=== PATIENT | male | born 2000 | race Caucasian/White ===

== ENCOUNTER 2019-05-11 15:21 | Inpatient (IN) ==
[2019-05-11] MEDS ORDERED: IOPAMIDOL 100 ML BOTTLE IV ONE (15:22)
[2019-05-11] MEDS ORDERED: DIPH,PERTUSS(ACELL),TET VAC/PF 0.5 ML SYRINGE IM ONE (15:53)
--- NOTE | 2019-05-11 16:07 | Emergency Department Note ---
General Adult HPI - General Chief complaint: Skin/Abscess/Foreign Body Stated complaint: "want to be tested for tetanus" Time Seen by Provider: 05/11/19 15:29 Source: patient Mode of arrival: ambulatory Limitations: no limitations - History of Present Illness HPI Narrative: 19-year-old male presents concerned that he may have tetanus. 8 days ago he was poked in the left thumb by a paola nail. His immunizations are not current. States they were when he was a young child but he dropped out of school at a young age and has not had any immunizations since because they were not required. States about 48 hours ago he started having body aches. Yesterday all of a sudden he had a sudden onset of jaw stiffness. States he can open and close his job but it is very stiff and he has to put a lot of effort into it. States he really even has to think about swallowing because it just feels like all his muscles are stiff. Today he noticed his neck was stiff so he neck muscles felt stiff and heavy. No fever or chills. No nausea, vomiting, or diarrhea. No home treatments. Has a small puncture wound at the site that is healing but no redness, warmth, or drainage. - Related Data Home Medications Medication Instructions Recorded Confirmed No Known Home Meds 05/11/19 05/11/19 Allergies Allergy/AdvReac Type Severity Reaction Status Date / Time No Known Drug Allergies Allergy Verified 05/11/19 15:23 Review of Systems All systems ED: reviewed and negative except as stated. Past Medical History - Past Medical History Medical history: Reports: no medical history Surgical history ED: Reports: no surgical history - Social History smoking status: Never smoker Alcohol use: Reports: Unknown Drug use: Reports: unknown Physical Exam Limitations: no limitations General appearance: alert Head: atraumatic, normocephalic, normal inspection Eye: Present: normal appearance. Absent: conjunctival injection ENT: mucous membranes moist, TM's normal bilaterally, normal external ear exam, other (Can open and close his mouth/jaw but takes him a little bit of time to do it. Gag reflex is intact) Neck: Present: normal inspection, full ROM, trachea midline, other (Again he has full range of motion of his cervical feels like it stiff and moves a little slow.). Absent: tenderness, meningismus Chest: Present: symmetric chest wall rise Respiratory: Present: normal lung sounds bilaterally. Absent: respiratory distress, rales/crackles, wheezes, accessory muscle use Cardiovascular: Present: regular rate, normal heart sounds Neurological: Present: alert, oriented X3, normal gait Psychiatric: Present: normal affect, normal mood Skin: Present: warm, dry, intact Course Course Narrative: At 1600 I did consult with Dr. Rodriguez with infectious disease. He suggest that we give the patient a tetanus immunization however it is too late for the immunoglobulin. He suggest that we monitor her symptoms for 12 to 24 hours and if it does not progress rapidly then we know it is not tetanus and he can go ahead and be discharged home. @1648 Dr. Clemons, hospitalist agrees to accept pt observation. Vital Signs Temperature 98.1 F 05/11/19 15:22 Pulse Rate 96 H 05/11/19 15:22 Respiratory Rate 16 05/11/19 15:22 Blood Pressure 135/76 05/11/19 15:22 Pulse Oximetry (%) 97 05/11/19 15:22 Temperature 98.1 F 05/11/19 15:22 Pulse Rate 96 H 05/11/19 15:22 Respiratory Rate 16 05/11/19 15:22 Blood Pressure 135/76 05/11/19 15:22 Pulse Oximetry (%) 97 05/11/19 15:22 Disposition Pt seen by ASSISTANT SPA DIRECTOR/PA only: Yes Clinical Impression: Puncture wound, Muscle stiffness Disposition: Xfer As Outpt/Obs ([facility]) Condition: Fair Referrals: No,PCP [Primary Care Provider] -
[2019-05-11] MEDS ORDERED: metroNIDAZOLE 500 MG/100 ML BAG IV ONE (16:55)
[2019-05-11] MEDS ORDERED: metroNIDAZOLE 500 MG/100 ML BAG IV SCH (18:00)
[2019-05-11] MEDS ORDERED: TETANUS IMMUNE GLOBULIN/PF 250 UNIT SYRINGE IM ONE ×2 (19:37)
--- NOTE | 2019-05-11 19:50 | Infectious Disease Consult ---
History of Present Illness Patient information: Note initiated : 05/11/19 at 7:44 pm Service Date, if different from initiated Date: [] Patient: Karel Jaime 19 y/o M admitted on for "want to be tested for tetanus". Chief Complaint: [] Consult date: 05/11/19 Requesting Physician: Dr. Clemons Reason for Consult: Concerns for Tetanus Chief complaint: My neck is stiff and have difficulty opening mouth History of present illness: 19 year old otherwise healthy adult male comes to [facility] ED with about 4 day history of: - neck stiffness: acute onset with progession. Pt cis still able to touch his chin but with effort - difficulty swallowing: Pt says he is able to drink water without pain or choking, but senses some awkwardness and effort while doing so. Since last 2 days, pt is also c/o difficulty opening his mouth. He feels that he has to exert effort to open it fully. He further adds that about 9 day ago, he had a puncture wound from a rusted nail. The wound site has gotten better. He doesnot remember getting any tetanus shots in last 10-12 years. He denies any fever, eye symptoms [pain or weakness with eye movements, vision changes], focal weakness or numbness, nausea-vomiting, belly pain, diarrhea. Denies any IV drug use, herbal medicine intake. Endorses sick contacts: mentions his grandparents are sick, grandfather has a urinary catheter, doesnot remember any other symptoms. Review of Systems All systems PM: reviewed and no additional remarkable complaints except as stated Past History Past family history: sick contacts: grandparents Past social history: denied any smoking, alc, IV drug use Medications and Allergies Home Medications Medication Instructions Recorded Confirmed Type No Known Home Meds 05/11/19 05/11/19 History Allergies Allergy/AdvReac Type Severity Reaction Status Date / Time No Known Drug Allergies Allergy Verified 05/11/19 15:23 Physical Examination Vital signs: Temp Pulse Resp BP Pulse Ox 36.7 C 89 16 111/71 98 05/11/19 15:22 05/11/19 18:13 05/11/19 18:13 05/11/19 18:13 05/11/19 18:13 General appearance: no acute distress, alert Eyes pulmonary: nonicteric ENT: oropharynx moist, other (ok dental hygiene, no carious teeth. Uvula central. Pt able to open mouth completely but with some effort) Neck: no lymphadenopathy, other (some neck stiffness, but pt able to touch his chin with base of neck) Auscultation: bilateral: clear Cardiovascular: regular rate and rhythm Gastrointestinal: normoactive bowel sounds Integumentary: normal Extremities: no edema Gait: other (Kernig's sign negative) normal mental status, non-focal exam Results - Laboratory Findings CBC and BMP: 05/12/19 03:50 05/12/19 03:50 Assessment and Plan - Narrative A/P Narrative: A: 1. Acute onset of neck stiffness, dysphagia and difficulty opening of mouth -possible infectious causes which should be ruled out: Neck infection: abscess in parapharyngeal or retropharyngeal space Tetanus Dental infection - In absence of Kernig's sign, fever, headache, photosensitivity, other neurological findings; I have low suspicion for meningitis. - Tetanus should be ruled out, but clinically I have low suspicion for it because of following reasons: On exam, absence of trismus, dysphagia, no progression of symptoms since last 2 days Absence of any muscle spasms, seizures 2. Vaccination for tetanus Recommendations: - Admit patient with ICU care - Tetanus Immunoglobulin minimum 500 IU to be administered IM, with part of it to be given at the site of puncture. Given optimal therapeutic dose is not defined and few recommendations have recommended up to 3000 IU; will try to get some more TIG from surrounding hospitals. Once available it should be given IM only - CT face and neck with IV contrast to r/o any neck/facial/dental etiology - Blood Cx x 2 sets - IV Metronidazole 500 mg q6 hrs - IV Cefepime 2 gm q[address] face/neck negative for any infection, it could be stopped - Check procalcitonin, CBC with diff - check Urine drug screen will follow Shree Rodriguez MD Infectious diseases
[2019-05-11] MEDS ORDERED: CEFEPIME 1 GM VIAL IV SCH (20:30)
--- NOTE | 2019-05-11 20:31 | Internal Med History&Physical ---
Medical - H&P: HPI Patient information: Note initiated : 05/11/19 at 8:29 pm Service Date, if different from initiated Date: [] Patient: Karel Jaime a 19 y/o M admitted on for "want to be tested for tetanus". Chief Complaint: [] History of present illness: Mr. Jaime is a 19 year old M with no past medical history, takes only multivitamins at home, not sure about his immunization status since around 4 years old, presents to the emergency room today for evaluation of neck pain difficulty in swallowing and jaw stiffness. The patient notes he had a puncture wound on his left thumb approximately 8 days ago on 9 days ago, over the last 2 to 3 days he is noticed that he has neck spasm that is progressively been getting worse, he is had intermittent difficulty in swallowing and now has jaw stiffness or as he puts it he needs to strain to open his jaws. He read online about tetanus and therefore came to the emergency room for further evaluation. He has history of dental infections but no active dental pain or drainage. The patient denies any other complaints. There is no headache no changes in vision, some difficulty in swallowing, no fever chills no chest pain no shortness of breath no nausea vomiting no bladder issues he denies any joint pains or skin rashes. The patient denies taking any [id number] supplements or herbal supplements, no recent procedures or surgeries The patient is being admitted to the hospital with a concern for tetanus We only have 500 units of tetanus immunoglobulin available, reviewing the literature it notes that patient needs 3000 to 6000 units of tetanus immunoglobulin for clinical suspicion of active tetanus. Tetanus toxoid vaccination was given We called multiple hospitals in the surrounding region and as far as [facility] [place] [place] and [facility] None of the hospital had adequate doses of tetanus immunoglobulin and declined to accept the transfer for that reason. . All systems: reviewed and no additional remarkable complaints except as stated (As per HPI rest negative) Medical - H&P: PMH Medical history: None Surgical history: None Family history: reviewed and not pertinent Social history: Denies tobacco or recreational drug use Medical - H&P: Meds Home Medications Medication Instructions Recorded Confirmed Type No Known Home Meds 05/11/19 05/11/19 History Allergies Allergy/AdvReac Type Severity Reaction Status Date / Time No Known Drug Allergies Allergy Verified 05/11/19 15:23 Medical - H&P: Exam - Constitutional Vitals: Temp Pulse Resp BP Pulse Ox 98.1 F 65 16 125/56 99 05/11/19 15:22 05/11/19 20:02 05/11/19 18:13 05/11/19 20:02 05/11/19 20:02 Exam: GENERAL: The patient is a well-developed, well-nourished in no apparent distress. Is alert and oriented x3. VITAL SIGNS: Reviewed and as noted elsewhere. HEENT: Head is normocephalic and atraumatic. Extraocular muscles are intact. Pupils are equal, round, and reactive to light. Nares appeared normal. Mouth appears any without lesions. Mucous membranes are moist. NECK: Normal to inspection, Supple, No lymphadenopathy or thyromegaly. LUNGS: Air entry equal on both sides, no wheezing, crackles or rhonchi noted. No accessory muscles of respiration HEART: Regular rate and rhythm normal, S1 and S2 heard, no Gallop, S3 or Rub Noted, No Gross murmur heard. ABDOMEN: Soft, nontender, and nondistended. Positive bowel sounds. No hepatosplenomegaly was noted. EXTREMITIES: No cyanosis, clubbing, rash, lesions or edema. NEUROLOGIC: Cranial nerves II through XII are grossly intact. Motor and Sensory System Grossly Intact PSYCHIATRIC: Normal affect, Normal Mood. Appropriate Behavior. SKIN: No ulceration or wounds noted, No jaundice, No rash noted. Medical - H&P: Reslt - Labs CBC & Chem 7: 05/11/19 20:13 05/11/19 20:13 Medical - H&P: A/P - Narrative A/P Narrative: Tetanus -Monitor on PCU status -tetanus vaccine given -500units of Tetanus immunoglobulin given, with around 50units infiltrated in the thumb -no e/o local infection or necrosis to warrant wound care -we are trying to obtain the remaining doses of immunoglobulin by pooling the medication from other hospitals. -patient has been updated on the situation and agrees with the mangement plan -benzo for muscle spams -will intubate to protect airway and consider neuromuscular relaxants if needed. -ID has been consulted, advised neck /dental CT to r?o other infections, IV cefepime and metronidazole, On further review CDC website as well as they are pink book (Immunology and Vaccine-Preventable Diseases Derwood Book Tetanus) for management of tetanus mentions according to some experts 500 units should be adequate and is sometimes as effective as 3000 to 6000 units. I have placed a copy of the relevant section in patients chart. They also recommend consideration for IVIG if we are unable to obtain tetanus immunoglobulin however since we have at least 500 units available at this time and considering the complications associated with IVIG we will hold off on this. Excerpt from [facility] website "Medical experts recommend a single dose of human TIG for treatment of persons with tetanus. Researchers have not established the optimal therapeutic dose. However, experts recommend 500 international units (IU), which appears to be as effective as higher doses ranging from 3,000 to 6,000 IU and causes less discomfort. Clinicians must administer available preparations intramuscularly; TIG preparations available in the [place] are not licensed or formulated for intrathecal or intravenous use. Some medical experts recommend infiltration of part of the dose locally around the wound (see Red BookExternal), although its efficacy has not been proven. If TIG is not available, clinicians can use IGIV at a dose of 200 to 400 milligrams per kilogram (mg/kg). However, the Food and Drug Administration has not approved IGIV for this use. In addition, anti-tetanus antibody content varies from lot to lot."
[2019-05-11 21:05] LABS: Basophils # (Auto) 0 K/mcL (0.0-0.3); Basophils % (Auto) 0.1 % (0.0-2.0); Eosinophils # (Auto) 0.1 K/mcL (0.0-0.7); Eosinophils % (Auto) 0.8 % (0.0-7.0); Granulocytes % (Auto) 78.8 % (38.0-78.0); Hematocrit 42.2 % (41.0-55.0); Hemoglobin 13.9 g/dL (13.5-16.5); Lymphocytes # (Auto) 1.4 K/mcL (1.5-4.8); Lymphocytes % (Auto) 15.7 % (15.5-49.0); Mean Corpuscular HGB Conc 32.9 g/dL (31.0-36.0); Monocytes # (Auto) 0.4 K/mcL (0.1-0.9); Monocytes % (Auto) 4.6 % (1.0-12.0); Platelet Count 262 K/mcL (140-440); RBC 4.69 M/mcL (4.50-5.90); Red Cell Distribution Width 13.4 % (11.5-14.5); WBC 9.2 K/mcL (4.5-11.0)
[2019-05-11] MEDS ORDERED: LORazepam 2 MG/ML VIAL IV PRN (21:10)
[2019-05-11 21:24] LABS: ALT/SGPT 19 U/l (0-40); AST/SGOT 22 U/l (0-37); Albumin 4.5 gm/dL (3.2-5.2); Albumin/Globulin Ratio 1.5 (1.0-2.3); Alkaline Phosphatase 67 U/L (39-117); Bilirubin,Direct < 0.2 mg/dL (0.0-0.3); Bilirubin,Total 0.5 mg/dL (0.0-1.0); Blood Urea Nitrogen 10 mg/dl (6-20); Calcium 9.8 mg/dl (8.6-10.4); Carbon Dioxide 27 mmol/L (22-30); Chloride 101 mmol/L (96-108); Globulin 3.1 gm/dL (2.2-3.7); Glomerular Filtration Rate 129; Glucose 91 mg/dL (70-105); Lactate Dehydrogenase 149 U/L (94-250); Phosphorous 3.4 mg/dL (2.7-4.5); Triglycerides 48 mg/dl (<125); Uric Acid 4.3 mg/dL (2.5-8.0)
[2019-05-11] MEDS: 0.9 % SODIUM CHLORIDE 10 ML SYRINGE IV SCH (21:33)
[2019-05-11] MEDS: CEFEPIME 1 GM VIAL IV SCH (21:33)
[2019-05-11 21:39] LABS: Amphetamine Screen,Urine NONE DETECTED (NONDETECTED); Barbiturate Screen,Urine NONE DETECTED (NONDETECTED); Benzodiazepines Screen,Urine NONE DETECTED (NONDETECTED); Cannabinoid Screen,Urine SUSPECT POSITIVE (NONDETECTED); Cocaine Screen,Urine NONE DETECTED (NONDETECTED); Opiate Screen,Urine NONE DETECTED (NONDETECTED); Oxycodone, Urine Screen NONE DETECTED (NONDETECTED); Phencyclidine Screen,Urine NONE DETECTED (NONDETECTED)
[2019-05-11] MEDS: metroNIDAZOLE 500 MG/100 ML BAG IV SCH (23:35)
[2019-05-11] MEDS ORDERED: METHOCARBAMOL 1,000 MG/10 ML VIAL IV PRN (23:58)
[2019-05-12] MEDS ORDERED: METHOCARBAMOL 1,000 MG/10 ML VIAL ONE (00:03)
[2019-05-12] MEDS ORDERED: MAGNESIUM SULFATE 2 GM/50 ML BAG IV ONE ×2 (00:39→00:48)
[2019-05-12] MEDS: metroNIDAZOLE 500 MG/100 ML BAG IV SCH ×4 (02:05→18:24)
[2019-05-12] MEDS ORDERED: TETANUS IMMUNE GLOBULIN/PF 250 UNIT SYRINGE IM ONE (03:00)
[2019-05-12] MEDS: CEFEPIME 1 GM VIAL IV SCH (05:38)
[2019-05-12] MEDS: 0.9 % SODIUM CHLORIDE 10 ML SYRINGE IV SCH ×3 (05:39→21:01)
[2019-05-12 07:19] LABS: Basophils # (Auto) 0 K/mcL (0.0-0.3); Basophils % (Auto) 0.5 % (0.0-2.0); Eosinophils # (Auto) 0.3 K/mcL (0.0-0.7); Eosinophils % (Auto) 3.9 % (0.0-7.0); Granulocytes % (Auto) 63.1 % (38.0-78.0); Hematocrit 41.7 % (41.0-55.0); Hemoglobin 13.7 g/dL (13.5-16.5); Lymphocytes # (Auto) 1.9 K/mcL (1.5-4.8); Lymphocytes % (Auto) 23.8 % (15.5-49.0); Mean Cell Volume 90.6 fL (80.0-100.0); Mean Corpuscular HGB Conc 32.8 g/dL (31.0-36.0); Mean Platelet Volume 8.1 fL (7.4-10.4); Monocytes # (Auto) 0.7 K/mcL (0.1-0.9); Monocytes % (Auto) 8.7 % (1.0-12.0); Platelet Count 254 K/mcL (140-440); RBC 4.61 M/mcL (4.50-5.90); Red Cell Distribution Width 13.3 % (11.5-14.5); WBC 8.2 K/mcL (4.5-11.0)
[2019-05-12 07:28] LABS: ALT/SGPT 15 U/l (0-40); AST/SGOT 21 U/l (0-37); Albumin 4.2 gm/dL (3.2-5.2); Albumin/Globulin Ratio 1.4 (1.0-2.3); Alkaline Phosphatase 64 U/L (39-117); Bilirubin,Direct < 0.2 mg/dL (0.0-0.3); Bilirubin,Total 0.5 mg/dL (0.0-1.0); Blood Urea Nitrogen 9 mg/dl (6-20); Carbon Dioxide 27 mmol/L (22-30); Chloride 99 mmol/L (96-108); Globulin 2.9 gm/dL (2.2-3.7); Glomerular Filtration Rate 108; Glucose 79 mg/dL (70-105); Lactate Dehydrogenase 146 U/L (94-250); Phosphorous 4.2 mg/dL (2.7-4.5); Triglycerides 55 mg/dl (<125); Uric Acid 4.8 mg/dL (2.5-8.0)
--- NOTE | 2019-05-12 08:21 | Cat Scan Report ---
History: Dental surgery one month ago with pain and infection TECHNIQUE: The patient was imaged following injection of intravenous contrast scanning from above the orbits through the thoracic inlet. Sagittal and coronal reformats were created. The radiation exposure was limited using dose reduction technology. FINDINGS: Patient has had a dental cap applied to the right first mandibular molar. A root canal had also been performed at this level. A small amount of the cement which was inserted into the root canal has extended through a small defect in the cortex, along the lateral wall of the adjacent mandible. There is no associated soft tissue inflammation and no erosion of bone. No facial or neck abscess are present. There are a few small reactive lymph nodes in the upper neck. The largest is adjacent to the right submandibular gland and measures 8 x 10 mm. There are smaller submental lymph nodes. No pathologically enlarged lymph nodes are present. The submandibular and parotid glands are normal and symmetric. Oral cavity parapharyngeal spaces are normal. The larynx is normal. Thyroid is normal in size and homogeneous. Lung apices are clear. Patient has chronic severe right maxillary sinusitis. The sinuses completely opacified with heterogeneous inflammatory material. There is slight thickening of the wall of the adjacent maxilla due to chronic sinusitis. There is also opacification of a couple right ethmoid air cells area The orbits are normal. Visualized portion of the brain is normal. IMPRESSION: Postoperative changes following a root canal and placement of a dental cap in the right first mandibular molar. The cement has extended through a small defect in the cortex in the adjacent mandible but there is no evidence of abscess or osteomyelitis. Severe chronic right maxillary sinusitis Interpreted and Authenticated by: Moy Fegn 05/12/19
--- NOTE | 2019-05-12 11:27 | Internal Med Progress Note ---
Medical - PN: Subj Patient information: Note initiated : 05/12/19 at 11:24 am Service Date, if different from initiated Date: [] Patient: Karel Jaime 19 y/o M admitted on 05/11/19 for Tetanus. Chief Complaint: [] Interval history: Mr. Jaime is a 19 year old M with no past medical history, takes only multivitamins at home, not sure about his immunization status since around 4 years old, presents to the emergency room today for evaluation of neck pain difficulty in swallowing and jaw stiffness. The patient notes he had a puncture wound on his left thumb approximately 8 days ago on 9 days ago, over the last 2 to 3 days he is noticed that he has neck spasm that is progressively been getting worse, he is had intermittent difficulty in swallowing and now has jaw stiffness or as he puts it he needs to strain to open his jaws. He read online about tetanus and therefore came to the emergency room for further evaluation. He has history of dental infections but no active dental pain or drainage. The patient denies any other complaints. There is no headache no changes in vision, some difficulty in swallowing, no fever chills no chest pain no shortness of breath no nausea vomiting no bladder issues he denies any joint pains or skin rashes. The patient denies taking any [id number] supplements or herbal supplements, no recent procedures or surgeries The patient is being admitted to the hospital with a concern for tetanus We only have 500 units of tetanus immunoglobulin available, reviewing the literature it notes that patient needs 3000 to 6000 units of tetanus immunoglobulin for clinical suspicion of active tetanus. Tetanus toxoid vaccination was given We called multiple hospitals in the surrounding region and as far as [facility] and [facility] None of the hospital had adequate doses of tetanus immunoglobulin and declined to accept the transfer for that reason. 05/12 Patient seen and examined, no acute overnight event He did complain about some muscle spasm in his lower extremity and torso last night which responded to methocarbamol and magnesium The patient is able to talk well feels his jaw tightness is better he was able to walk around take a shower this morning he is able to tolerate p.o. diet well He does appear anxious and depressed He has no new complaints feels better He got a total of 2250 units of tetanus immunoglobulin, CT scan shows sinusitis chronic maxillary. Otherwise no evidence of dental infection or spinal neck infection Appreciate infectious disease help discontinue cefepime now. We will monitor the patient for at least another 24 hours and likely discharge him tomorrow. The patient gag reflex is intact, which makes me wonder if tetanus is the underlying culprit in this patient. Pertinent ROS: Denies headache, dizziness Denies chest pain, palpitations Denies cough or shortness of breath Denies abdominal pain, nausea or vomiting. - Constitutional Vitals: Vital Signs Temp Pulse Resp BP Pulse Ox 97.8 F 62 14 140/57 98 05/12/19 06:58 05/12/19 06:01 05/12/19 06:01 05/12/19 06:01 05/12/19 06:01 Period Temp Pulse Resp BP Sys/Zarate Pulse Ox Last 24 Hr 97.7 F-98.5 F 59-96 9-17 107-144/53-85 96-100 Intake and Output 05/11/19 05/12/19 05/12/19 21:59 05:59 13:59 Intake Total 094 790 0766 Output Total 1200 1300 Balance -1100 -790 1060 Weight 164 lb 2 oz 164 lb 2 oz Patient Weight 05/13/19 05:59 Weight 164 lb 2 oz Intake & Output: Intake & Output 05/11/19 05/12/19 05/12/19 21:59 05:59 13:59 Intake Total 977 232 3542 Output Total 1200 1300 Balance -1100 -790 1060 Weight 164 lb 2 oz 164 lb 2 oz Intake: IV 100 150 100 Oral 360 960 Output: Void Amount 1200 1300 Other: Meal Breakfast Percent of Meal Consumed 100% Feeding Ability Independent Urine Appearance Clear Clear Urine Color Bright Yellow Bright Yellow Exam: Constitutional; Afebrile, cooperative, alert, not in distress. Respiratory system: Air Entry equal on both sides, No crackles or wheezing, no rhonchi. CVS- Rate rhythm regular, S1,S2 heard, no gallop, no rub. Abdomen- Soft nontender abdomen, no organomegaly, no tenderness, no guarding or rigidity, ADVERTISING CONSULTANT- AOOx3, moving all extremities, no gross focal deficit noted. able to open jaw well, Gag reflex intact Am J Trop Med Hyg. 1994;53(4):386-7. Short report: the spatula test: a simple bedside test to diagnose tetanus. Nafisa Tan DR. Author information Abstract Four hundred patients with suspected tetanus were studied to determine the value of the spatula test to diagnose tetanus. A positive test result (reflex spasm o f the masseters on touching the posterior pharyngeal wall) was seen in 359 (94%) of 380 patients with tetanus and in no patient without tetanus. Thirty-three of 400 patients (13 with tetanus and 20 with other diagnoses) had a negative test result (a gag reflex with attempted expulsion of the spatula). Thus, the test performed on presentation had a high specificity (100%) and sensitivity (94%) for diagnosing tetanus. PMID: [id number] DOI: [email or web address] Medical - PN: Obj Da - Labs CBC & Chem 7: 05/12/19 03:50 05/12/19 03:50 Labs: Abnormal Lab Results 05/11/19 05/11/19 20:42 20:13 Gran % 78.8 H Lymph # (Auto) 1.4 L U Marijuana (THC) Screen Suspect positive A Meds: Medications Metronidazole (Flagyl) 500 mg in 100 mls @ 100 mls/hr IV Q6H JESUS; Protocol Last Infusion: 05/12/19 08:35 Dose: Infused Documented by: Lorazepam (Ativan) 0.5 - 1 mg IV Q2HP PRN PRN Reason: muscle spasms Last Admin: 05/11/19 23:44 Dose: 1 mg Documented by: Methocarbamol (Robaxin) 750 mg IV Q6HP PRN PRN Reason: Muscle Spasm Sodium Chloride (Saline Flush) 10 ml IV Q8 JESUS Last Admin: 05/12/19 05:39 Dose: 10 ml Documented by: Medical - PN: A/P - Time Spent With Patient Total time spent is greater than 50% in coordination of care (as documented) at patient's floor/unit and/or counseling patient: - Narrative A/P Narrative: Tetanus sinusitis -on flagyl, patient received 2250 units of tetanus immune globulin -IV Ativan methocarbamol as needed for muscle spasm, does not seem to worsen, ext stimuli has no real effect on patients spasms. -Monitor for another 24 hours and possible discharge home -We will need to consider completing the course tetanus vaccination as outpatient. Medical - PN: Qual - VTE Deep Vein Thrombosis/Pulmonary Embolism Present on Admission: No
--- NOTE | 2019-05-12 12:57 | Internal Med Progress Note ---
Medical - PN: Subj Patient information: Note initiated : 05/12/19 at 12:56 pm Service Date, if different from initiated Date: [] Patient: Karel Jaime 19 y/o M admitted on 05/11/19 for Tetanus. Chief Complaint: [] Interval history: Mr. Jaime is a 19 year old M with no past medical history, takes only multivitamins at home, not sure about his immunization status since around 4 years old, presents to the emergency room today for evaluation of neck pain difficulty in swallowing and jaw stiffness. The patient notes he had a puncture wound on his left thumb approximately 8 days ago on 9 days ago, over the last 2 to 3 days he is noticed that he has neck spasm that is progressively been getting worse, he is had intermittent difficulty in swallowing and now has jaw stiffness or as he puts it he needs to strain to open his jaws. He read online about tetanus and therefore came to the emergency room for further evaluation. He has history of dental infections but no active dental pain or drainage. The patient denies any other complaints. There is no headache no changes in vision, some difficulty in swallowing, no fever chills no chest pain no shortness of breath no nausea vomiting no bladder issues he denies any joint pains or skin rashes. The patient denies taking any [id number] supplements or herbal supplements, no recent procedures or surgeries The patient is being admitted to the hospital with a concern for tetanus We only have 500 units of tetanus immunoglobulin available, reviewing the literature it notes that patient needs 3000 to 6000 units of tetanus immunoglobulin for clinical suspicion of active tetanus. Tetanus toxoid vaccination was given We called multiple hospitals in the surrounding region and as far as [facility] and [facility] None of the hospital had adequate doses of tetanus immunoglobulin and declined to accept the transfer for that reason. 05/12 Patient seen and examined, no acute overnight event He did complain about some muscle spasm in his lower extremity and torso last night which responded to methocarbamol and magnesium The patient is able to talk well feels his jaw tightness is better he was able to walk around take a shower this morning he is able to tolerate p.o. diet well He does appear anxious and depressed He has no new complaints feels better He got a total of 2250 units of tetanus immunoglobulin, CT scan shows sinusitis chronic maxillary. Otherwise no evidence of dental infection or spinal neck infection Appreciate infectious disease help discontinue cefepime now. We will monitor the patient for at least another 24 hours and likely discharge him tomorrow. The patient gag reflex is intact, which makes me wonder if tetanus is the underlying culprit in this patient. 05/13 - Constitutional Vitals: Vital Signs Temp Pulse Resp BP Pulse Ox 97.4 F 74 12 138/75 100 05/12/19 12:21 05/12/19 12:32 05/12/19 12:32 05/12/19 12:21 05/12/19 12:32 Period Temp Pulse Resp BP Sys/Zarate Pulse Ox Last 24 Hr 97.4 F-98.5 F 59-96 9-17 107-144/53-85 96-100 Intake and Output 05/11/19 05/12/19 05/12/19 21:59 05:59 13:59 Intake Total 083 831 1961 Output Total 1200 1300 Balance -1100 -790 1060 Weight 74.446 kg 74.446 kg Patient Weight 05/13/19 05:59 Weight 74.446 kg Intake & Output: Intake & Output 05/11/19 05/12/19 05/12/19 21:59 05:59 13:59 Intake Total 443 108 9113 Output Total 1200 1300 Balance -1100 -790 1060 Weight 74.446 kg 74.446 kg Intake: IV 100 150 100 Oral 360 960 Output: Void Amount 1200 1300 Other: Meal Breakfast Percent of Meal Consumed 100% Feeding Ability Independent Urine Appearance Clear Clear Urine Color Bright Yellow Bright Yellow Stool Size Moderate Stool Color Brown Stool Consistency Dry and Hard # Voids 2 # Bowel Movements 1 Exam: General: Alert, Awake, No acute Distress Eyes/N/T: EOMI, Head/Neck: neck supple, CV: RRR, No murmurs, Pulm: Clear b/l, no wheezing/rhonchi/rales Abd: soft, nontender, +BS x4 Ext: no clubbing/cyanosis/edema Neuro: Alert, no focal deficits, moves all extremities, Skin: warm/dry Medical - PN: Obj Da - Labs CBC & Chem 7: 05/12/19 03:50 05/12/19 03:50 Labs: Abnormal Lab Results 05/11/19 05/11/19 20:42 20:13 Gran % 78.8 H Lymph # (Auto) 1.4 L U Marijuana (THC) Screen Suspect positive A Meds: Medications Metronidazole (Flagyl) 500 mg in 100 mls @ 100 mls/hr IV Q6H JESUS; Protocol Last Infusion: 05/12/19 08:35 Dose: Infused Documented by: Lorazepam (Ativan) 0.5 - 1 mg IV Q2HP PRN PRN Reason: muscle spasms Last Admin: 05/11/19 23:44 Dose: 1 mg Documented by: Methocarbamol (Robaxin) 750 mg IV Q6HP PRN PRN Reason: Muscle Spasm Sodium Chloride (Saline Flush) 10 ml IV Q8 JESUS Last Admin: 05/12/19 05:39 Dose: 10 ml Documented by: Medical - PN: A/P - Time Spent With Patient Total time spent is greater than 50% in coordination of care (as documented) at patient's floor/unit and/or counseling patient: - Narrative A/P Narrative: A: *Neck stiffness/dysphagia/difficulty with jaw opening: ?Tetanus vs other -CT neck no abscess/dental or other infection P: -patient received 2250 units of tetanus immune globulin -on flagyl, -IV Ativan methocarbamol as needed for muscle spasm, does not seem to worsen, ext stimuli has no real effect on patients spasms. -Monitor for another 24 hours and possible discharge home -We will need to consider completing the course tetanus vaccination as outpatient (two more doses - at four weeks and 6-12mos later). Medical - PN: Qual - VTE Deep Vein Thrombosis/Pulmonary Embolism Present on Admission: No
--- NOTE | 2019-05-12 14:39 | Discharge Summary ---
Medical - DS: Prov Patient information: Note initiated : 05/12/19 at 2:37 pm Service Date, if different from initiated Date: [] Patient: Karel Jaime 19 y/o M admitted on 05/11/19 for Tetanus. Chief Complaint: [] Date of admission: 05/11/19 21:06 Discharge date: 05/13/19 Primary care physician: PCP No Consults: 05/11/19 Consult to Physician [CONS] Stat Comment: Consulting Provider: Shree Rodriguez Reason For Exam: Physician to Consult 05/11/19 16:46 Consult to Physician [CONS] Stat Comment: Consulting Provider: Celia Clemons Reason For Exam: Physician to Consult Medical - DS: Meds - Discharge Medications Active and Home Medications: Home Medications No Known Home Meds 05/11/19 [History Confirmed 05/11/19 Last Taken Unknown] Medical - DS: Hosp Hospital course: Mr. Jaime is a 19 year old M Mr. Jaime is a 19 year old M with no past medical history, takes only multivitamins at home, not sure about his immunization status since around 4 years old, presents to the emergency room today for evaluation of neck pain difficulty in swallowing and jaw stiffness. The patient notes he had a puncture wound on his left thumb approximately 8 days ago on 9 days ago, over the last 2 to 3 days he is noticed that he has neck spasm that is progressively been getting worse, he is had intermittent difficult y in swallowing and now has jaw stiffness or as he puts it he needs to strain to open his jaws. He read online about tetanus and therefore came to the emergency room for further evaluation. He has history of dental infections but no active dental pain or drainage. The patient denies any other complaints. There is no headache no changes in vision, some difficulty in swallowing, no fever chills no chest pain no shortness of breath no nausea vomiting no bladder issues he denies any joint pains or skin rashes. The patient denies taking any [id number] supplements or herbal supplements, no recent procedures or surgeries The patient is being admitted to the hospital with a concern for tetanus We only have 500 units of tetanus immunoglobulin available, reviewing the literature it notes that patient needs 3000 to 6000 units of tetanus immunoglobulin for clinical suspicion of active tetanus. Tetanus toxoid vaccination was given We called multiple hospitals in the surrounding region and as far as [facility] and [facility] None of the hospital had adequate doses of tetanus immunoglobulin and declined to accept the transfer for that reason. 05/12 Patient seen and examined, no acute overnight event He did complain about some muscle spasm in his lower extremity and torso last night which responded to methocarbamol and magnesium The patient is able to talk well feels his jaw tightness is better he was able to walk around take a shower this morning he is able to tolerate p.o. diet well He does appear anxious and depressed He has no new complaints feels better He got a total of 2250 units of tetanus immunoglobulin, CT scan shows sinusitis chronic maxillary. Otherwise no evidence of dental infection or spinal neck infection Appreciate infectious disease help discontinue cefepime now. We will monitor the patient for at least another 24 hours and likely discharge him tomorrow. The patient gag reflex is intact, which makes me wonder if tetanus is the underlying culprit in this patient. 05/13 No overnight events no new complaints. Patient doing well, desires for discharge. Stable Discharge diagnosis: Possible tetanus - Time Spent with Patient Total time spent providing and/or coordinating discharge services: Greater than 30 minutes Medical - DS: Exam - Constitutional Vitals: Vital Signs Temp Pulse Pulse Resp BP BP BP 05/12/19 12:32 74 12 05/12/19 12:21 97.4 F 79 13 138/75 05/12/19 12:14 71 16 05/12/19 08:01 70 11 L 124/76 05/12/19 07:01 74 12 131/79 05/12/19 06:58 97.8 F 05/12/19 06:01 62 14 140/57 05/12/19 05:01 59 L 16 123/63 05/12/19 04:01 98.0 F 74 11 L 121/63 05/12/19 03:01 61 17 123/64 05/12/19 02:01 67 11 L 139/70 05/12/19 02:00 72 12 05/12/19 01:01 70 16 114/64 05/12/19 00:01 70 14 118/60 05/11/19 23:51 97.7 F 77 11 L 131/71 05/11/19 23:49 97.7 F 76 12 131/71 05/11/19 23:47 97.7 F 64 10 L 131/71 05/11/19 23:46 97.7 F 66 9 L 131/71 05/11/19 23:45 73 11 L 05/11/19 23:41 87 11 L 131/71 05/11/19 23:01 62 11 L 134/60 05/11/19 22:57 97.7 F 65 12 134/60 05/11/19 22:01 83 11 L 125/67 05/11/19 21:16 81 9 L 144/85 05/11/19 21:06 98.5 F 72 11 L 144/85 05/11/19 20:02 65 125/56 05/11/19 20:00 66 15 117/55 05/11/19 19:00 89 111/71 05/11/19 18:13 89 16 111/71 05/11/19 18:00 78 107/53 05/11/19 17:54 59 L 16 126/62 05/11/19 17:33 73 16 127/67 05/11/19 17:13 78 16 107/53 05/11/19 16:53 70 16 116/56 05/11/19 16:31 59 L 115/65 05/11/19 15:22 98.1 F 96 H 16 135/76 Pulse Ox 05/12/19 12:32 100 05/12/19 12:21 98 05/12/19 12:14 99 05/12/19 08:01 100 05/12/19 07:01 100 05/12/19 06:58 05/12/19 06:01 98 05/12/19 05:01 98 05/12/19 04:01 96 05/12/19 03:01 97 05/12/19 02:01 99 05/12/19 02:00 99 05/12/19 01:01 98 05/12/19 00:01 100 05/11/19 23:51 100 05/11/19 23:49 100 05/11/19 23:47 100 05/11/19 23:46 100 05/11/19 23:45 100 05/11/19 23:41 100 05/11/19 23:01 100 05/11/19 22:57 99 05/11/19 22:01 100 05/11/19 21:16 96 05/11/19 21:06 97 05/11/19 20:02 99 05/11/19 20:00 98 05/11/19 19:00 98 05/11/19 18:13 98 05/11/19 18:00 99 05/11/19 17:54 98 05/11/19 17:33 98 05/11/19 17:13 98 05/11/19 16:53 97 05/11/19 16:31 100 05/11/19 15:22 97 Intake and Output 05/12/19 05/12/19 05/12/19 05:59 13:59 21:59 Intake Total 510 1060 100 Output Total 1300 Balance -790 1060 100 Intake: IV 150 100 100 Oral 360 960 Output: Void Amount 1300 Other: Meal Breakfast Percent of Meal Consumed 100% Feeding Ability Independent Urine Appearance Clear Urine Color Bright Yellow Stool Size Moderate Stool Color Brown Stool Consistency Dry and Hard # Voids 2 # Bowel Movements 1 Weight 74.446 kg Patient Weight 05/13/19 05:59 Weight 74.446 kg Medical - DS: Data Labs on day of discharge: Labs from last 24 hours 05/12/19 05/12/19 05/11/19 03:50 03:50 20:42 WBC 8.2 RBC 4.61 Hgb 13.7 Hct 41.7 MCV 90.6 MCH 29.7 MCHC 32.8 RDW 13.3 Plt Count 254 MPV 8.1 Gran % 63.1 Lymph % (Auto) 23.8 Cochran % (Auto) 8.7 Eos % (Auto) 3.9 Baso % (Auto) 0.5 Gran # 5.2 Lymph # (Auto) 1.9 Cochran # (Auto) 0.7 Eos # (Auto) 0.3 Baso # (Auto) 0 Sodium 138 Potassium 3.7 Chloride 99 Carbon Dioxide 27 Anion Gap 12.0 BUN 9 Creatinine 1.0 GFR Calculation 108 Glucose 79 Uric Acid 4.8 Calcium 9.0 Phosphorus 4.2 Magnesium 2.5 Total Bilirubin 0.5 Direct Bilirubin < 0.2 GGT 15 AST 21 ALT 15 Alkaline Phosphatase 64 Lactate Dehydrogenase 146 Total Protein 7.1 Albumin 4.2 Globulin 2.9 Albumin/Globulin Ratio 1.4 Triglycerides 55 Urine Opiates Screen None detected Ur Opiates Confirm Not Reportable Ur Oxycodone Screen None detected Urine Methadone Screen None detected Ur Methadone Confirm Not Reportable Ur Barbiturates Screen None detected Ur Barbiturate Confirm Not Reportable Ur Phencyclidine Scrn None detected Urine PCP Confirm Not Reportable Ur Amphetamines Screen None detected U Amphetamines Confirm Not Reportable U Benzodiazepines Scrn None detected U Benzodiazepine Confm Not Reportable Urine Cocaine Screen None detected Urine Cocaine Confirm Not Reportable U Cannabinoids Confirm Not Reportable U Marijuana (THC) Screen Suspect positive A 05/11/19 05/11/19 20:13 20:13 WBC 9.2 RBC 4.69 Hgb 13.9 Hct 42.2 MCV 90.0 MCH 29.6 MCHC 32.9 RDW 13.4 Plt Count 262 MPV 8.0 Gran % 78.8 H Lymph % (Auto) 15.7 Cochran % (Auto) 4.6 Eos % (Auto) 0.8 Baso % (Auto) 0.1 Gran # 7.2 Lymph # (Auto) 1.4 L Cochran # (Auto) 0.4 Eos # (Auto) 0.1 Baso # (Auto) 0 Sodium 140 Potassium 3.7 Chloride 101 Carbon Dioxide 27 Anion Gap 12.0 BUN 10 Creatinine 0.8 GFR Calculation 129 Glucose 91 Uric Acid 4.3 Calcium 9.8 Phosphorus 3.4 Magnesium 2.0 Total Bilirubin 0.5 Direct Bilirubin < 0.2 GGT 15 AST 22 ALT 19 Alkaline Phosphatase 67 Lactate Dehydrogenase 149 Total Protein 7.6 Albumin 4.5 Globulin 3.1 Albumin/Globulin Ratio 1.5 Triglycerides 48 Urine Opiates Screen Ur Opiates Confirm Ur Oxycodone Screen Urine Methadone Screen Ur Methadone Confirm Ur Barbiturates Screen Ur Barbiturate Confirm Ur Phencyclidine Scrn Urine PCP Confirm Ur Amphetamines Screen U Amphetamines Confirm U Benzodiazepines Scrn U Benzodiazepine Confm Urine Cocaine Screen Urine Cocaine Confirm U Cannabinoids Confirm U Marijuana (THC) Screen Medical - DS: A/P - Patient/Caregiver Discharge Instructions Activity: increase activity as tolerated Diet: Regular Diet Additional Instructions: Needs follow-up tetanus vaccination - dose at 4 weeks and another dose at 6 to 12 months - Follow up Plan Follow up with: Bakari Tellez PA-C [Physician Surfacer] - 05/24/19 3:00 pm (Please check in at 2:45 for paperwork) Shree Rodriguez MD [Physician] - Disposition: Home, Self-Care Prognosis: Fair Rehab Potential: Fair Medical - DS: Qual - VTE Deep Vein Thrombosis/Pulmonary Embolism Present on Admission: No
--- NOTE | 2019-05-12 18:46 | Infectious Disease Prog Note ---
Subjective Patient information: Note initiated : 05/12/19 at 6:33 pm Service Date, if different from initiated Date: [] Patient: Karel Jaime 19 y/o M admitted on 05/11/19 for Tetanus. Chief Complaint: [] Interval history: Pt feels better. Denies any fever, chills, n/v, diarrhea. Able to swallow and drink/eat without any problems. Denies any difficulty opening his mouth. Reports that he has long history of muscle spasms in legs and arms and didnot notice any worsening recently. He mentions that he wants to go home soon. Objective Objective Narrative: General appearance: no acute distress, alert Eyes: nonicteric ENT: oropharynx moist, Uvula central. Pt able to open mouth completely but without any difficulty Neck: no lymphadenopathy, no neck stiffness, but pt able to touch his chin with base of neck Chest: CTAB CVS: s1 s2 normal, no m/r/g GI: normoactive bowel sounds, non tender, no distended no skin rash no edema Neuro: power 5/5 all muscle groups normal mental status, non focal exam - Vital Signs Vital signs: Vital Signs Temp Pulse Pulse Resp BP BP BP 05/12/19 14:43 60 17 121/65 05/12/19 12:32 74 12 05/12/19 12:21 36.3 C 79 13 138/75 05/12/19 12:14 71 16 05/12/19 08:01 70 11 L 124/76 05/12/19 07:01 74 12 131/79 05/12/19 06:58 36.6 C 05/12/19 06:01 62 14 140/57 05/12/19 05:01 59 L 16 123/63 05/12/19 04:01 36.7 C 74 11 L 121/63 05/12/19 03:01 61 17 123/64 05/12/19 02:01 67 11 L 139/70 05/12/19 02:00 72 12 05/12/19 01:01 70 16 114/64 05/12/19 00:01 70 14 118/60 05/11/19 23:51 36.5 C 77 11 L 131/71 05/11/19 23:49 36.5 C 76 12 131/71 05/11/19 23:47 36.5 C 64 10 L 131/71 05/11/19 23:46 36.5 C 66 9 L 131/71 05/11/19 23:45 73 11 L 05/11/19 23:41 87 11 L 131/71 05/11/19 23:01 62 11 L 134/60 05/11/19 22:57 36.5 C 65 12 134/60 05/11/19 22:01 83 11 L 125/67 05/11/19 21:16 81 9 L 144/85 05/11/19 21:06 36.9 C 72 11 L 144/85 05/11/19 20:02 65 125/56 05/11/19 20:00 66 15 117/55 05/11/19 19:00 89 111/71 Pulse Ox 05/12/19 14:43 99 05/12/19 12:32 100 05/12/19 12:21 98 05/12/19 12:14 99 05/12/19 08:01 100 05/12/19 07:01 100 05/12/19 06:58 05/12/19 06:01 98 05/12/19 05:01 98 05/12/19 04:01 96 05/12/19 03:01 97 05/12/19 02:01 99 05/12/19 02:00 99 05/12/19 01:01 98 05/12/19 00:01 100 05/11/19 23:51 100 05/11/19 23:49 100 05/11/19 23:47 100 05/11/19 23:46 100 05/11/19 23:45 100 05/11/19 23:41 100 05/11/19 23:01 100 05/11/19 22:57 99 05/11/19 22:01 100 05/11/19 21:16 96 05/11/19 21:06 97 05/11/19 20:02 99 05/11/19 20:00 98 05/11/19 19:00 98 Intake and Output 05/12/19 05/12/19 05/12/19 05:59 13:59 21:59 Intake Total 510 1060 400 Output Total 1300 Balance -790 1060 400 Intake: IV 150 100 100 Oral 360 960 300 Output: Void Amount 1300 Other: Meal Breakfast Dinner Percent of Meal Consumed 100% 100% Feeding Ability Independent Urine Appearance Clear Urine Color Bright Yellow Stool Size Moderate Stool Color Brown Stool Consistency Dry and Hard # Voids 2 # Bowel Movements 1 Weight 74.446 kg Patient Weight 05/13/19 05:59 Weight 74.446 kg Intake & Output: Intake & Output 05/12/19 05/12/19 05/12/19 05:59 13:59 21:59 Intake Total 510 1060 400 Output Total 1300 Balance -790 1060 400 Weight 74.446 kg Intake: IV 150 100 100 Oral 360 960 300 Output: Void Amount 1300 Other: Meal Breakfast Dinner Percent of Meal Consumed 100% 100% Feeding Ability Independent Urine Appearance Clear Urine Color Bright Yellow Stool Size Moderate Stool Color Brown Stool Consistency Dry and Hard # Voids 2 # Bowel Movements 1 - Lab 05/12/19 03:50 05/12/19 03:50 Most recent lab results Calcium 9.0 mg/dl (8.6-10.4) 05/12/19 03:50 Phosphorus 4.2 mg/dL (2.7-4.5) 05/12/19 03:50 Magnesium 2.5 mg/dL (1.6-2.5) 05/12/19 03:50 Microbiology 05/11/19 21:11 Nose MRSA (PCR) - Final Medications Active Medications: Metronidazole (Flagyl) 500 mg in 100 mls @ 100 mls/hr IV Q6H JESUS; Protocol Last Infusion: 05/12/19 14:32 Dose: 0 mls/hr Documented by: Admin: 05/12/19 13:15 Dose: 100 mls/hr Documented by: [email or web address] Infusion: 05/12/19 08:35 Dose: 0 mls/hr Documented by: Admin: 05/12/19 05:39 Dose: 100 mls/hr Documented by: Admin: 05/12/19 02:05 Dose: Not Given Documented by: TAINA Non-Admin Reason: d/t slide time Infusion: 05/12/19 00:35 Dose: 100 mls/hr Documented by: Admin: 05/11/19 23:35 Dose: 100 mls/hr Documented by: TAINA Lorazepam (Ativan) 0.5 - 1 mg IV Q2HP PRN PRN Reason: muscle spasms Last Admin: 05/11/19 23:44 Dose: 1 mg Documented by: TAINA Methocarbamol (Robaxin) 750 mg IV Q6HP PRN PRN Reason: Muscle Spasm Sodium Chloride (Saline Flush) 10 ml IV Q8 JESUS Last Admin: 05/12/19 14:32 Dose: 10 ml Documented by: [email or web address] Admin: 05/12/19 05:39 Dose: 10 ml Documented by: [email or web address] Admin: 05/11/19 21:33 Dose: 10 ml Documented by: TAINA Assessment and Plan - Narrative A/P Narrative: A: 1. Acute onset of neck stiffness, dysphagia and difficulty opening of mouth: r esolving - Absence of Kernig's sign, fever, headache, photosensitivity, other neurological findings - CT face and neck neg for obvious infectious causes which could explain above symptoms - Very low suspicion for tetanus: On exam, absence of trismus, dysphagia, no progression of symptoms since last 3 days Absence of any new and persistent tonic muscle spasms, seizures 2. Chronic left maxillary sinusitis: has slight facial tenderness over left cheek - CT neg for any complications, bone infection Recommendations: - Will observe until tomorrow morning. 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 NO antibiotics needed for this as he doesnot have any nasal stuffiness, purulent nasal drainage will follow Shree Rodriguez MD Infectious diseases
[2019-05-13] MEDS: metroNIDAZOLE 500 MG/100 ML BAG IV SCH ×2 (04:45)
[2019-05-13] MEDS: 0.9 % SODIUM CHLORIDE 10 ML SYRINGE IV SCH (05:28)
[2019-05-13 07:17] LABS: Basophils # (Auto) 0 K/mcL (0.0-0.3); Basophils % (Auto) 0.5 % (0.0-2.0); Eosinophils # (Auto) 0.3 K/mcL (0.0-0.7); Eosinophils % (Auto) 4.3 % (0.0-7.0); Granulocytes % (Auto) 59.8 % (38.0-78.0); Hematocrit 42.4 % (41.0-55.0); Hemoglobin 13.9 g/dL (13.5-16.5); Lymphocytes # (Auto) 1.7 K/mcL (1.5-4.8); Lymphocytes % (Auto) 26.3 % (15.5-49.0); Mean Cell Volume 89.7 fL (80.0-100.0); Mean Corpuscular HGB Conc 32.8 g/dL (31.0-36.0); Mean Platelet Volume 8.1 fL (7.4-10.4); Monocytes # (Auto) 0.6 K/mcL (0.1-0.9); Monocytes % (Auto) 9.1 % (1.0-12.0); Platelet Count 276 K/mcL (140-440); RBC 4.72 M/mcL (4.50-5.90); Red Cell Distribution Width 13.6 % (11.5-14.5); WBC 6.6 K/mcL (4.5-11.0)
[2019-05-13 07:57] LABS: ALT/SGPT 16 U/l (0-40); AST/SGOT 19 U/l (0-37); Albumin 4.2 gm/dL (3.2-5.2); Albumin/Globulin Ratio 1.4 (1.0-2.3); Alkaline Phosphatase 66 U/L (39-117); Bilirubin,Direct < 0.2 mg/dL (0.0-0.3); Bilirubin,Total 0.2 mg/dL (0.0-1.0); Blood Urea Nitrogen 14 mg/dl (6-20); Calcium 9.6 mg/dl (8.6-10.4); Carbon Dioxide 25 mmol/L (22-30); Chloride 100 mmol/L (96-108); Glomerular Filtration Rate 123; Glucose 72 mg/dL (70-105); Lactate Dehydrogenase 161 U/L (94-250); Phosphorous 4.2 mg/dL (2.7-4.5); Triglycerides 44 mg/dl (<125); Uric Acid 4.1 mg/dL (2.5-8.0)
--- NOTE | 2019-05-13 17:05 | Infectious Disease Prog Note ---
Subjective Patient information: Note initiated : 05/13/19 at 4:44 pm Service Date, if different from initiated Date: [] Patient: Karel Jaime 19 y/o M admitted on 05/11/19 for Tetanus. Chief Complaint: [] Interval history: Pt doing same as yesterday. Denied any difficulty opening of mouth, swallowing of water and food. No tonic muscle spasms. Discussed plan for discharge and f/u in ID clinic to get uptodate with age appropriate vaccinations. Objective Objective Narrative: ao x 3, in nad no thrush able to open mouth fully no neck stiffness, able to touch chest with chin chest ctab s1 s2 normal bs ++ nttd no edema Left thumb looks fine, no obvious wound - Vital Signs Vital signs: Vital Signs Temp Pulse Pulse Resp BP Pulse Ox 05/13/19 10:32 36.8 C 05/13/19 09:48 142/71 05/13/19 09:01 14 123/66 05/13/19 08:08 15 118/78 05/13/19 06:59 36.3 C 13 135/63 100 05/13/19 06:01 65 8 L 120/71 99 05/13/19 06:00 61 11 L 99 05/13/19 05:59 61 13 99 05/13/19 05:06 54 L 17 98 05/13/19 05:01 52 L 16 121/65 98 05/13/19 04:52 52 L 16 97 05/13/19 04:01 57 L 12 117/67 100 05/13/19 03:01 66 12 130/66 99 05/13/19 02:07 78 19 98 05/13/19 02:01 68 8 L 121/60 98 05/13/19 01:15 76 14 99 05/13/19 01:01 78 11 L 124/70 100 05/13/19 00:15 89 99 05/13/19 00:01 37.0 C 78 9 L 131/68 100 05/12/19 23:01 64 9 L 126/61 100 05/12/19 22:01 52 L 14 108/59 99 05/12/19 21:46 61 16 98 05/12/19 21:01 53 L 14 118/63 100 05/12/19 21:00 79 21 99 05/12/19 20:01 52 L 16 131/68 99 05/12/19 20:00 57 L 14 98 05/12/19 19:01 36.8 C 12 124/60 100 05/12/19 19:00 78 12 100 05/12/19 18:45 75 100 05/12/19 18:41 75 17 100 05/12/19 18:01 70 10 L 143/66 99 05/12/19 17:01 77 12 133/85 100 Intake and Output 05/13/19 05/13/19 05/13/19 05:59 13:59 21:59 Intake Total 1300 Output Total 1200 Balance 100 Intake: IV 200 Oral 1100 Output: Void Amount 1200 Other: Urine Appearance Clear Urine Color Straw Urine Odor Strong Intake & Output: Intake & Output 05/13/19 05/13/19 05/13/19 05:59 13:59 21:59 Intake Total 1300 Output Total 1200 Balance 100 Intake: IV 200 Oral 1100 Output: Void Amount 1200 Other: Urine Appearance Clear Urine Color Straw Urine Odor Strong - Lab 05/13/19 03:40 05/13/19 03:40 Most recent lab results Calcium 9.6 mg/dl (8.6-10.4) 05/13/19 03:40 Phosphorus 4.2 mg/dL (2.7-4.5) 05/13/19 03:40 Magnesium 1.9 mg/dL (1.6-2.5) 05/13/19 03:40 Microbiology 05/11/19 20:13 Blood Blood Culture - Preliminary 05/11/19 20:18 Blood Blood Culture - Preliminary 05/11/19 21:11 Nose MRSA (PCR) - Final Assessment and Plan - Narrative A/P Narrative: A: 1. Acute onset of neck stiffness, dysphagia and difficulty opening of mouth: resolved. - Absence of Kernig's sign, fever, headache, photosensitivity, other neurological findings - CT face and neck neg for obvious infectious causes which could explain above symptoms - In absence of typical symptoms and signs of tetanus [ absence of trismus, dysphagia, no progression of symptoms since last 4 days, absence of any tonic muscle spasms, seizures ], I donot think it is tetanus 2. Chronic left maxillary sinusitis: has slight facial tenderness over left cheek - CT neg for any complications, bone infection Recommendations: - Stop Metronidazole - Pt ok to be discharged with follow up in ID clinic within a week for rest of vaccinations: Meningitis, HPV, Hep A, tetanus (dose 2nd at 1 month, dose 3rd at 7 mnths) and others. An appt made for 05/18 at 3:30 pm - For chronic sinusitis, pt should do daily nasal saline rinses (Neilmed) and intranasal Flonase 2 puffs once daily. NO antibiotics needed for this as he doesnot have any nasal stuffiness, purulent nasal drainage Shree Rodriguez MD Infectious diseases
[2019-05-17 09:30] LABS: Cannabinoid Confirmation POSITIVE (N)
== END 2019-05-13 10:00 | disposition home or self-care (01) | DRG 869 ==
LOC: ED 15:21 → ICU 21:06
PROVIDERS: ADMIT Internal Medicine; ATTEND Internal Medicine